=== PATIENT | female | born 1945 | race Caucasian/White ===

== ENCOUNTER 2016-07-27 21:08 | Emergency (ER) | payer OTHER ==
[~2016-07-27] VITALS: Ht 165.1 cm; Wt 56.3 kg
[~2016-07-27 21:08] MED LIST: ACETAMINOPHEN-1 EAC1 PO; ALPRAZOLAM ER0.5 MG PO; ASPIR 8181 M1 PO; AUGMENTIN875 MG PO; BACTRIM,SEPT1 TABLET PO; CALCIUM 500 MG1 EACH PO; CLONAZEPAM0.5 MG PO; COMPAZINE10 MG PO; DAILY VALUE1 EACH PO; K-DUR20 MEQ PO; LASIX20 MG PO; LEVAQUIN500 MG PO; LISINOPRIL5 MG PO; LITE COAT ASPI325 M1 PO; METOPROLOL SUCC50 MG PO; MIRALAX255 GM PO; NOXAFIL100 MG PO; OXYCODONE-ACET1 EACH PO; RAPAMUNE1 MG PO; SENOKOT S,PE1 TABLET PO; SIMVASTATIN20 MG PO; TRAMADOL HCL50 MG PO; TYLENOL REGULA325 MG PO; VALCYTE450 MG PO; VITAMIN B-6100 MG PO; VITAMIN B-650 M1 PO
[2016-07-27] MEDS ORDERED: WELLBUTRIN SR150 MG PO (21:44)
[2016-07-27] MEDS ORDERED: METOPROLOL SUCC50 MG PO (21:47)
[2016-07-27] MEDS ORDERED: CALCIUM 600 +1 EA16 PO (21:48)
[2016-07-27 22:53] LABS: HEMATOCRIT 26.3 % (36.0-46.0); MCH 44.9 PG (29.0-34.0); MCHC 33.5 G/DL (30.0-36.0); RBC DIS.WIDTH-CV 20.2 % (11.8-14.6); RBC DIS.WIDTH-SD 88.6 % (39-53); RED BLOOD COUNT 1.96 M/uL (3.80-5.20); WHITE BLOOD COUNT 6.5 K/uL (4.1-10.2)
[2016-07-27 23:02] LABS: CHLORIDE 110 mEq/L (99-109); POTASSIUM 3.8 mEq/L (3.7-5.4); SODIUM 141 mEq/L (136-147)
[2016-07-27 23:04] LABS: GLUCOSE 95 mg/dL (70-99)
[2016-07-27 23:05] LABS: ANION GAP 12 MEQ/L (2-14)
[2016-07-27 23:06] LABS: TOTAL BILIRUBIN 0.5 mg/dL (0.0-1.0)
[2016-07-27 23:07] LABS: SERUM ETHYL ALCOHOL < 10 mg/dL
[2016-07-27 23:08] LABS: ALKALINE PHOSPHATASE 89 IU/L (3-129); GFR ESTIMATE (CALCULATED) 32 mL/min/
[2016-07-27 23:09] LABS: UREA NITROGEN (BUN) 39 mg/dL (9-23)
[2016-07-27 23:24] LABS: INTER. NORMALIZED RATIO 1.4; PTT 24.8 (25-32)
[2016-07-27 23:43] LABS: ADD MIUA? YES; BILIRUBIN NEGATIVE; BLOOD NEGATIVE; COLOR YELLOW ((YELLOW)); GLUCOSE (STRIP) NEGATIVE; KETONES 5; LEUKOCYTES NEGATIVE; NITRITE NEGATIVE; PROTEIN (STRIP) 30; SPECIFIC GRAVITY 1.025 (1.000-1.030); UROBILINOGEN 0.2 MG/DL (0.2-1.0)
[2016-07-27 23:45] LABS: BACTERIA NONE SEEN /HPF; EPITHELIAL CELLS 1+ /HPF; HYALINE CASTS 0-5 /LPF; MUCUS TRACE /LPF; RED BLOOD CELLS 0-5 /HPF (0-5); UCUL ADDED? NO; UNCLASSIFIED CASTS 0-5 /LPF; WHITE BLOOD CELLS 0-5 /HPF (0-5)
[2016-07-28] VITALS: BP 126/66
[2016-07-28] LABS: AMPHETAMINE NEGATIVE (500 ng/mL); BARBITURATES NEGATIVE (200 ng/mL); BENZODIAZEPINES PRESUMPTIVE POSITIVE (150 ng/mL); COCAINE NEGATIVE (150 ng/mL); INTERNAL CONTROLS VALID? YES; METHADONE NEGATIVE (200 ng/mL); METHAMPHETAMINE NEGATIVE (500 ng/mL); OPIATES (MORPHINE) PRESUMPTIVE POSITIVE (100 ng/mL); OXYCODONE NEGATIVE (100 ng/mL); PHENCYCLIDINE NEGATIVE (25 ng/mL); PROPOXYPHENE NEGATIVE (300 ng/mL); THC CANNABINOIDS NEGATIVE (50 ng/mL); TRICYCLIC ANTIDEPRESSANTS NEGATIVE (300 ng/mL)
[2016-07-28 00:01] LABS: ADD MEDTOX COMMENT Y
[2016-07-28 00:51] LABS: NRBC (%) 1.8 /100 WBC (0-0)
[2016-07-28 01:29] LABS: EOSINOPHIL (%) 0.5 % (0-5); HEMATOLOGY COMMENT 1 REV; IMMATURE GRANULOCYTE (%) 0.3 % (0.0-0.7); IMMATURE GRANULOCYTE COUNT 0.2 K/uL; LYMPHOCYTE COUNT 1.9 K/uL (1.0-2.8); MCV 134.2 FL (83-99); MONOCYTE (%) 6.6 % (3-12); MONOCYTE COUNT 0.4 K/uL (0-0.8); NEUTROPHIL (%) 63.2 % (45-76); NEUTROPHIL COUNT 4.1 K/uL (1.8-6.4)
[2016-07-28 01:30] LABS: PLATELET COUNT UNABLE TO REPORT K/uL (156-360)
[2016-07-28 02:21] LABS: BENZODIAZEPINES QUANT VALUE 0 NG/ML
[2016-07-28 02:30] LABS: BENZODIAZEPINES, URINE SCREEN Negative (200 ng/mL)
== END 2016-07-28 03:00 | disposition short-term general hospital (02) ==
LOC: EME 21:08
PROVIDERS: Emergency Medicine
DX: R41.82 Altered mental status, unspecified (principal); Z85.72 Personal history of non-Hodgkin lymphomas; D46.9 Myelodysplastic syndrome, unspecified; Z94.81 Bone marrow transplant status; F32.9 Major depressive disorder, single episode, unspecified; I10 Essential (primary) hypertension; E78.5 Hyperlipidemia, unspecified; Z87.891 Personal history of nicotine dependence
CPT/HCPCS: 70450; 71010; 80053; 81003; 83605; 84999; 85025; 85610; 85730; 87040; 93005; 99281; 99285; G0480

== ENCOUNTER → 2016-08-25 | Outpatient (CLI) | payer OTHER ==
[~2016-08-25] MED LIST changes: +CALCIUM 600 +1 EA16 PO; +WELLBUTRIN SR150 MG PO
== END | disposition home or self-care (01) ==
LOC: RES 11:00
DX: J45.909 Unspecified asthma, uncomplicated (principal)
CPT/HCPCS: 94060; 94727; 94729

== ENCOUNTER 2016-09-16 15:09 | Emergency (ER) | payer OTHER ==
[~2016-09-16] VITALS: Ht 167.6 cm; Wt 65.9 kg
[2016-09-16 17:27] VITALS: BP 130/75
== END 2016-09-16 17:31 | disposition home or self-care (01) ==
LOC: EME 15:09
DX: S00.12XA Contusion of left eyelid and periocular area, initial encounter (principal); W19.XXXA Unspecified fall, initial encounter; Y92.199 Unspecified place in other specified residential institution as the place of occurrence of the external cause; I10 Essential (primary) hypertension; E78.5 Hyperlipidemia, unspecified; Z87.891 Personal history of nicotine dependence
CPT/HCPCS: 99281; 99284

== ENCOUNTER 2016-10-06 11:03 | Day surgery (SDC) | payer OTHER ==
[~2016-10-06] VITALS: Ht 165.1 cm; Wt 71.1 kg
[~2016-10-06 11:03] MED LIST changes: +ATROVENT H200 INHALA IH; +FUROSEMIDE40 MG PO; +METOPROLOL SUCC25 MG PO
[2016-10-06 12:01] LABS: NRBC (%) 0.5 /100 WBC (0-0)
[2016-10-06 12:11] LABS: INTER. NORMALIZED RATIO 1.3; PROTHROMBIN TIME 13.4 (9.2-11.2); PTT 27.8 (25-32)
[2016-10-06 12:16] LABS: ALKALINE PHOSPHATASE 62 IU/L (3-129); ANION GAP 5 MEQ/L (2-14); CHLORIDE 107 MEQ/L (99-109); GFR ESTIMATE (CALCULATED) 47 mL/min/; GLUCOSE 94 mg/dL (70-99); SAMPLE HEMOLYSIS CHECK 0; SAMPLE ICTERIC CHECK 0; SAMPLE LIPEMIA CHECK 0; SODIUM 139 MEQ/L (136-147); TOTAL BILIRUBIN 0.8 MG/DL (0.0-1.0); UREA NITROGEN (BUN) 19 mg/dL (9-23)
[2016-10-06 12:25] LABS: HEMATOCRIT 40.3 % (36.0-46.0); IMM.PLATELET FRACTION 10.9 (1-7); MCH 43.9 PG (29.0-34.0); MCHC 32.8 G/DL (30.0-36.0); MCV 133.9 FL (83-99); MEAN PLAT.VOLUME 13.1 uM^3 (9.5-12.4); PLAT.SUFFICIENCY DECREASED; RBC DIS.WIDTH-CV 15.3 % (11.8-14.6); RED BLOOD COUNT 3.01 M/uL (3.80-5.20)
[2016-10-06 12:27] LABS: PLATELET COUNT 19 K/uL (156-360)
[2016-10-06 16:01] LABS: CARBOXY HGB 3.3 % (0-5); METHEMOGLOBIN 1.5 % (0-1.5); PCO2 38 mm Hg (35-45); PO2 63 mm Hg (80-100); SITE CARD. CATH.; pH 7.37 (7.35-7.45)
[2016-10-06 16:04] LABS: COMMENTS - BLOOD GASES ARTERIAL SAMPLE.
[2016-10-06 16:06] LABS: BASE EXCESS -1.4 mEq/L (-3 to +3); BICARBONATE 24.8 mEq/L (22-26); CARBOXY HGB 2.3 % (0-5); METHEMOGLOBIN 1.2 % (0-1.5); PCO2 47 mm Hg (35-45); PO2 29 mm Hg (80-100); pH 7.33 (7.35-7.45)
[2016-10-06 16:07] LABS: COMMENTS - BLOOD GASES VENOUS SAMPLEL
[2016-10-06 20:23] VITALS: BP 147/68
[2016-10-06 23:04] VITALS: BP 131/63
[2016-10-07 04:50] VITALS: BP 122/68
== END 2016-10-07 07:07 | disposition home or self-care (01) ==
LOC: CATH 11:03 → 4EAST 19:10 → 2SOUTH 19:10 → 4EAST 20:09
PROVIDERS: Internal Medicine Cardiovascular Disease
DX: I27.0 Primary pulmonary hypertension (principal); R09.02 Hypoxemia; Z85.72 Personal history of non-Hodgkin lymphomas; R60.9 Edema, unspecified; Z94.81 Bone marrow transplant status; Z87.891 Personal history of nicotine dependence; Z92.3 Personal history of irradiation; D46.9 Myelodysplastic syndrome, unspecified; Z92.21 Personal history of antineoplastic chemotherapy
CPT/HCPCS: 36600; 80053; 82803; 85027; 85610; 85730; 86900; 86901; 93005; C1760; C1769; C1894; G0378; J0153; J1200; J1644; J1940; J2250; J3010; J7050; P9035